=== PATIENT | female | born 1980 | race Caucasian/White ===

== ENCOUNTER → 2017-06-28 | Outpatient (CLI) | payer OTHER ==
--- NOTE | 2017-06-28 15:02 | DIAGNOSTIC IMAGING REPORT ---
LEFT VENOUS DOPP LOWER EXT UNILAT CLINICAL HISTORY: 36 years-old Female presenting with L LEG PAIN/SWELLING. TECHNIQUE: Real-time grayscale and color and spectral Doppler ultrasound imaging of the veins of the left lower extremity was performed. Compression and augmentation were also utilized. COMPARISON: None. FINDINGS: Left: Common femoral vein: Patent. Femoral vein: Patent. Greater saphenous vein: Patent. Popliteal vein: Patent. Calf veins: Patent. Other: None. IMPRESSION: No evidence of deep venous thrombosis. Electronically signed by: Arnaldo Echeverria M.D. 06/28/2017 3:01 PM Dictated Date/Time: 06/28/2017 3:00 PM
== END | disposition home or self-care (01) ==
LOC: C.ULTR 14:35
PROVIDERS: ATTEND Physician Assistant
DX: I80.3 Phlebitis and thrombophlebitis of lower extremities, unspecified (principal); M25.572 Pain in left ankle and joints of left foot